=== PATIENT | female | born 1955 | race Caucasian/White ===

== ENCOUNTER 2022-06-22 16:25 | Outpatient (CLI) | payer MEDICARE ==
[2022-06-22 17:32] LABS: #Basophils 0.1 10x3/uL (0.0-0.2); #Eosinphils 0.4 10x3/uL (0.0-0.5); #Monocytes 0.5 10x3/uL (0.0-1.1); #Neutrophils 2.7 10x3/uL (1.5-8.4); %Basophils 1.2 % (0.0-2.0); %Eosinophils 8.7 % (0.0-6.0); %Lymphocytes 25.7 % (18.0-47.0); %Monocytes 10.7 % (0.0-10.0); %Neutrophils 53.5 % (40.0-75.0); Mean Corpuscular HGB CONC 33.2 g/dL (32.0-36.0); Mean Corpuscular Hemoglobin 32.3 pg (27.0-33.0); Mean Platelet Volume 11.6 fl (7.4-10.4); Platelet Count 201 10x3/uL (150-450); RBC Distribution Width 12.8 % (11.5-14.5); Red Blood Cell (RBC) Count 4.03 10x6/uL (3.90-5.03); White Blood Cell (WBC) Count 5.1 10x3/uL (3.5-10.5)
== END 2022-06-22 16:26 | disposition home or self-care (01) ==
LOC: LABBT 16:25
PROVIDERS: ATTEND Orthopaedic Surgery Hand Surgery
DX: Z01.818 Encounter for other preprocedural examination (principal); S62.633D Displaced fracture of distal phalanx of left middle finger, subsequent encounter for fracture with routine healing; Z20.822 Contact with and (suspected) exposure to COVID-19
CPT/HCPCS: 85025; 87811; 93005; 93010

== ENCOUNTER 2022-06-23 12:06 | Day surgery (SDC) | payer MEDICARE ==
[2022-06-22 16:28] VITALS: BMI 21.1
[2022-06-23] MEDS ORDERED: Sodium Chloride 0.9% 100 ML ONE (14:07)
[2022-06-23] MEDS ORDERED: CEFAZOLIN 2 GM VIAL ONE (14:07)
[2022-06-23] MEDS ORDERED: fentaNYL Citrate/PF 100 MCG/2 ML SYRINGE ONE (14:14)
[2022-06-23] MEDS ORDERED: Dexamethasone 20 MG/5 ML VIAL ONE (14:22)
[2022-06-23] MEDS ORDERED: Ketorolac Tromethamine 30 MG/ML VIAL ONE ×2 (14:22→17:00)
[2022-06-23] MEDS ORDERED: Lidocaine 1% PF 5 ML VIAL ONE (14:22)
[2022-06-23] MEDS ORDERED: PROPOFOL 200 MG/20 ML VIAL ONE (14:22)
[2022-06-23] MEDS ORDERED: Ondansetron PF 4 MG/2 ML Vial ONE (14:22)
[2022-06-23] MEDS ORDERED: Bupivacaine PF 0.5% 30 ML VIAL ONE (14:41)
[2022-06-23] MEDS ORDERED: Neomycin-Polymyxin 1 ML AMP ONE (14:41)
[2022-06-23] MEDS ORDERED: Bacitracin Zinc Ointment 30 gm TUBE ONE (14:41)
[2022-06-23] MEDS ORDERED: Fentanyl 100 MCG/2 ML VIAL ONE (16:57)
[2022-06-23] MEDS ORDERED: HYDROcodone/Acetaminophen 5/325 mg Tablet ONE (17:36)
== END 2022-06-23 17:58 | disposition home or self-care (01) ==
LOC: SDC 12:06
PROVIDERS: ATTEND Orthopaedic Surgery Hand Surgery
PROC: 0PSV04Z Reposition Left Finger Phalanx with Internal Fixation Device, Open Approach (ICD-10-PCS; principal; 2022-06-23)
PROC: 0HQQXZZ Repair Finger Nail, External Approach (ICD-10-PCS; 2022-06-23)
DX: S67.193A Crushing injury of left middle finger, initial encounter (principal); S62.633B Displaced fracture of distal phalanx of left middle finger, initial encounter for open fracture; S62.623B Displaced fracture of middle phalanx of left middle finger, initial encounter for open fracture; I10 Essential (primary) hypertension; Z79.2 Long term (current) use of antibiotics; Z79.83 Long term (current) use of bisphosphonates; Z79.899 Other long term (current) drug therapy; X58.XXXA Exposure to other specified factors, initial encounter
CPT/HCPCS: 76000; J0690; J1100; J1885; J2405; J2704; J3010; J3490; S0020

== ENCOUNTER 2022-09-15 10:20 | Outpatient (CLI) | payer MEDICARE ==
[2022-09-15 11:52] LABS: #Eosinphils 0.1 10x3/uL (0.0-0.5); #Monocytes 0.4 10x3/uL (0.0-1.1); #Neutrophils 2.4 10x3/uL (1.5-8.4); %Basophils 0.9 % (0.0-2.0); %Eosinophils 1.5 % (0.0-6.0); %Lymphocytes 35.3 % (18.0-47.0); %Monocytes 8.2 % (0.0-10.0); %Neutrophils 53.9 % (40.0-75.0); Hemoglobin 14.7 g/dL (12.0-15.5); Mean Corpuscular HGB CONC 33.5 g/dL (32.0-36.0); Mean Corpuscular Volume 98.7 fl (81.6-98.3); Mean Platelet Volume 11.9 fl (7.4-10.4); Platelet Count 240 10x3/uL (150-450); RBC Distribution Width 12.9 % (11.5-14.5); Red Blood Cell (RBC) Count 4.45 10x6/uL (3.90-5.03); White Blood Cell (WBC) Count 4.5 10x3/uL (3.5-10.5)
[2022-09-15 12:02] LABS: Anion Gap 15 mmol/L (10-20); BUN (Urea Nitrogen) 17 mg/dL (9.8-20.1); Calc. Creatinine Clearance 0 mL/min (70-130); Calcium 10.3 mg/dL (7.8-10.44); Carbon Dioxide 25 mmol/L (23-31); Chloride 103 mmol/L (98-107); Estimated GFR 76; Glucose 87 mg/dL (80-115); Potassium 4.6 mmol/L (3.5-5.1); Sodium 138 mmol/L (136-145)
== END 2022-09-15 10:21 | disposition home or self-care (01) ==
LOC: LABBT 10:20
PROVIDERS: ATTEND Orthopaedic Surgery Hand Surgery
DX: Z01.812 Encounter for preprocedural laboratory examination (principal); S62.92XA Unspecified fracture of left hand, initial encounter for closed fracture
CPT/HCPCS: 80048; 85025

== ENCOUNTER 2022-09-18 07:53 | Day surgery (SDC) | payer MEDICARE ==
[2022-09-17 10:11] VITALS: BMI 20.7
[2022-09-18] MEDS ORDERED: Neomycin-Polymyxin 1 ML AMP ONE (09:07)
[2022-09-18] MEDS ORDERED: Bacitracin Zinc Ointment 30 gm TUBE ONE (09:07)
[2022-09-18] MEDS ORDERED: Bupivacaine PF 0.5% 30 ML VIAL ONE (09:07)
[2022-09-18] MEDS ORDERED: Sodium Chloride 0.9% 100 ML ONE (09:15)
[2022-09-18] MEDS ORDERED: CEFAZOLIN 2 GM VIAL ONE (09:15)
[2022-09-18] MEDS ORDERED: Midazolam HCl 2 mg/2 ml Vial ONE (09:22)
[2022-09-18] MEDS ORDERED: Propofol 500 MG/50 ML VIAL ONE (09:22)
[2022-09-18] MEDS ORDERED: fentaNYL Citrate/PF 100 MCG/2 ML SYRINGE ONE (09:22)
[2022-09-18] MEDS ORDERED: Ketamine 50 MG/ML (10ML VIAL) ONE (09:22)
[2022-09-18] MEDS ORDERED: PHENYLEPHRINE-NS 100 MCG/ML 10 ML SYRINGE ONE (09:27)
[2022-09-18] MEDS ORDERED: Ketorolac Tromethamine 30 MG/ML VIAL ONE (11:08)
== END 2022-09-18 11:10 | disposition home or self-care (01) ==
LOC: SDC 07:53
PROVIDERS: ATTEND Orthopaedic Surgery Hand Surgery
PROC: 0PPV04Z Removal of Internal Fixation Device from Left Finger Phalanx, Open Approach (ICD-10-PCS; principal; 2022-09-18)
DX: T84.84XA Pain due to internal orthopedic prosthetic devices, implants and grafts, initial encounter (principal); I10 Essential (primary) hypertension; Z79.899 Other long term (current) drug therapy; Y79.3 Surgical instruments, materials and orthopedic devices (including sutures) associated with adverse incidents
CPT/HCPCS: J1885; J2250; J2704; J3490; S0020